=== PATIENT | male | born 1985 | race Caucasian/White ===

== ENCOUNTER 2021-11-08 10:59 | Emergency (ER) | payer SELFPAY ==
[2021-11-08 11:42] VITALS: BP 130/86; PULSE 71; TEMP 97.8; BMI 35.2
[2021-11-08] MEDS ORDERED: KETOROLAC TROMETHAMINE 30 MG/1 ML VIAL ONE (12:19)
[2021-11-08] MEDS ORDERED: KETOROLAC TROMETHAMINE 30 MG/1 ML VIAL IM ONE (12:19)
== END 2021-11-08 13:31 | disposition home or self-care (01) ==
LOC: JERFT 10:59
PROC: 3E023GC Introduction of Other Therapeutic Substance into Muscle, Percutaneous Approach (ICD-10-PCS; principal; 2021-11-08)
DX: M25.512 Pain in left shoulder (principal); M79.632 Pain in left forearm
CPT/HCPCS: 73030-TC-LT-FY; 73060-TC-LT-FY; 73070-TC-LT-FY; 73090-TC-LT-FY; 99284-25